=== PATIENT | male | born 2000 | race Caucasian/White ===

== ENCOUNTER 2020-02-29 17:03 | Emergency (ER) | payer BC, OTHER ==
[~2020-02-29] VITALS: Ht 188 cm; Wt 80.0 kg
--- NOTE | 2020-02-29 18:07 | NUR ---
PT IN BED NO DISTRESS
[2020-02-29 18:12] LABS: BASOPHILS % (AUTO) 1 % (0-1); EOSINOPHILS % (AUTO) 2 % (1-7); LYMPHOCYTES % (AUTO) 30 % (22-44); MEAN CORPUSCULAR HEMOGLOBIN 29.5 pg (27.5-34.5); MEAN CORPUSCULAR HGB CONC 34.5 g/dL (33.2-36.2); MEAN PLATELET VOLUME 7.8 fL (7.4-10.4); MONOCYTES % (AUTO) 8 % (2-9); NEUTROPHILS % (AUTO) 60 % (42-75); PLATELET COUNT 263 x10^3/uL (130-400); RED BLOOD COUNT 5.33 x10^6/uL (4.38-5.82); RED CELL DISTRIBUTION WIDTH 12.7 % (9.4-14.8)
[2020-02-29 18:16] LABS: ALBUMIN 4.4 g/dL (3.4-5.0); ANION GAP 6 mmol/L (5-15); CALCIUM 9.3 mg/dL (8.5-10.1); CHLORIDE 105 mmol/L (98-107); CREATININE 1.01 mg/dL (0.7-1.3)
[2020-02-29 18:20] LABS: MD NO; TROPONIN I < 0.015 ng/mL (0.000-0.045)
[2020-02-29 19:03] VITALS: BP 131/79
--- NOTE | 2020-02-29 19:04 | NUR ---
Patient/Caregiver given discharge instructions and they have confirmed that they understand the instructions. Patient ambulatory with steady gait.
== END 2020-02-29 19:05 | disposition home or self-care (01) ==
LOC: ED 18:27
DX: R07.89 Other chest pain (principal); R06.00 Dyspnea, unspecified; R94.31 Abnormal electrocardiogram [ECG] [EKG]; R00.0 Tachycardia, unspecified; R00.2 Palpitations; I51.7 Cardiomegaly
CPT/HCPCS: 36415; 71046; 80048; 82040; 84484; 85025; 93005; 99285